=== PATIENT | male | born 1960 | race Caucasian/White ===

== ENCOUNTER 2017-08-04 16:08 | Outpatient (CLI) | payer BC | END 2017-08-04 16:18 | disposition home or self-care (01) | LOC: SLEEP 16:08 | PROVIDERS: ATTEND Nurse Practitioner Family | DX: G47.10 Hypersomnia, unspecified (principal); R00.2 Palpitations ==

== ENCOUNTER 2017-09-24 19:46 | Outpatient (CLI) | payer BC | END 2017-09-25 05:20 | disposition home or self-care (01) | LOC: SLEEP 19:46 | PROVIDERS: ATTEND Nurse Practitioner Family | DX: G47.10 Hypersomnia, unspecified (principal); R06.83 Snoring; R00.2 Palpitations; R61 Generalized hyperhidrosis; G47.34 Idiopathic sleep related nonobstructive alveolar hypoventilation | CPT/HCPCS: 95810 ==

== ENCOUNTER → 2019-02-26 | Outpatient (CLI) | payer BC ==
--- NOTE | 2019-02-26 13:18 | Diagnostic Imaging Report ---
PROCEDURE: CT abdomen and pelvis without contrast. TECHNIQUE: Multiple contiguous axial images were obtained through the abdomen and pelvis without the use of intravenous contrast. Auto Exposure Controls were utilized during the CT exam to meet ALARA standards for radiation dose reduction. INDICATION: Prostate cancer. COMPARISON: No prior studies are available for comparison. FINDINGS: The lung bases are clear. No discrete liver mass is detected. The gallbladder is unremarkable. No biliary ductal dilatation is seen. The pancreas and spleen are unremarkable. No adrenal mass is detected. The right kidney does contain a small cortical low density measuring 11 mm. This is too small to accurately characterize. No calculi are seen. There is no hydronephrosis. Aorta is nonaneurysmal. No central, retroperitoneal or mesenteric lymphadenopathy is identified. The small and large bowel loops are normal caliber. Appendix is unremarkable. No obstruction is seen. No free fluid or fluid collection is identified. The bladder and prostate are unremarkable. No definite pelvic lymphadenopathy is seen. No osteoblastic lesions are identified. IMPRESSION: 1. No abdominal or pelvic lymphadenopathy or evidence of metastatic disease is detected. 2. Small cortical low density right kidney, too small to characterize. Follow-up could be performed to confirm stability. 3. No acute feature is identified. Dictated by: Dictated on workstation # [id number]
--- NOTE | 2019-02-26 15:44 | Diagnostic Imaging Report ---
RADIOPHARMACEUTICAL: 22.8 mCi Tc-99m -MDP IV COMPARISON: None available. TECHNIQUE: Anterior and posterior whole body images. Additional sagittal imaging of the head, neck, and chest. FINDINGS: Minimally increased radiotracer activity is identified on the left within the lower lumbar spine. This is favored to be degenerative in nature. No additional suspicious focal radiotracer activity. The bilateral kidneys are visualized. Activity is also noted within the urinary bladder. IMPRESSION: 1. No scintigraphic evidence of osteoblastic osseous metastatic disease with mild degenerative changes within the lower lumbar spine.. Dictated by: Dictated on workstation # [id number]
== END ==
LOC: CARD 11:24
PROVIDERS: ATTEND Urology
DX: N28.89 Other specified disorders of kidney and ureter (principal); Z85.46 Personal history of malignant neoplasm of prostate
CPT/HCPCS: 74176; 78306